=== PATIENT | female | born 1980 ===

== ENCOUNTER 2017-05-23 22:37 | Emergency (ER) | payer MEDICAID, OTHER ==
[2017-05-23 22:38] VITALS: BMI 26.2
[2017-05-23 22:49] VITALS: BP 138/92; PULSE 110; RESP 16; TEMP 98.2; O2SAT 100
--- NOTE | 2017-05-23 22:57 | ED PDOC ---
HPI: Psych/Substance Abuse Time Seen by Provider: 05/23/17 22:41 Chief Complaint (Nursing): Alcohol Ingestion Chief Complaint (Provider): etoh History Per: Patient, EMS Additional Complaint(s): BIBA for etoh, patient was brought in by EMS after being found publicly intoxicated. Patient offers no complaints upon arrival. Past Medical History Reviewed: Historical Data, Nursing Documentation, Vital Signs Vital Signs: Last Vital Signs Temp 98.2 F 05/23/17 22:43 Pulse 110 H 05/23/17 22:43 Resp 16 05/23/17 22:43 BP 138/92 H 05/23/17 22:43 Pulse Ox 100 05/23/17 22:43 - Medical History PMH: No Chronic Diseases - Surgical History Surgical History: No Surg Hx - Family History Family History: States: No Known Family Hx - Living Arrangements Living Arrangements: With Friends/Others - Social History Current smoker - smoking cessation education provided: No Alcohol: Social Drugs: Denies - Home Medications Home Medications: Ambulatory Orders Medication Instructions Recorded Multivitamin [Multi-Vitamin Daily] 1 each PO DAILY 11/13/16 - Allergies Allergies/Adverse Reactions: Allergies Allergy/AdvReac Type Severity Reaction Status Date / Time No Known Allergies Allergy Verified 05/23/17 22:43 Review of Systems ROS Statement: Except As Marked, All Systems Reviewed And Found Negative Psych: Positive for: Other (etoh) Physical Exam - Reviewed Nursing Documentation Reviewed: Yes Vital Signs Reviewed: Yes - Physical Exam Appears: Positive for: Well, Non-toxic, No Acute Distress Skin: Negative for: Rash Eye Exam: Positive for: Normal appearance Cardiovascular/Chest: Positive for: Regular Rate, Rhythm Respiratory: Positive for: Normal Breath Sounds Neurologic/Psych: Positive for: Alert, Oriented, Gait (steady), Other (answers questions appropriately) - ECG O2 Sat by Pulse Oximetry: 100 Pulse Ox Interpretation: Normal Medical Decision Making Medical Decision Makin37 year old intoxicated female Patient is awake, alert, has steady gait. She states she will take an uber home. [place] [address] Patient is stable for discharge. Disposition - Clinical Impression Clinical Impression: Alcohol intoxication - Patient ED Disposition Is Patient to be Admitted: No Counseled Patient/Family Regarding: Need For Followup - Disposition Referrals: [facility] [Outside] Disposition: Routine/Home (patient left ED before signing d/c paperwork, verbal instructions given) Disposition Time: 23:05 Condition: STABLE Instructions: Alcohol Intoxication (ED) Forms: [facility] (N[place]ian)
== END 2017-05-24 00:03 | disposition home or self-care (01) ==
LOC: H.ER 22:37
DX: F10.129 Alcohol abuse with intoxication, unspecified (principal)